=== PATIENT | male | born 1965 | race Caucasian/White ===

== ENCOUNTER 2018-02-21 16:34 | Inpatient (IN) ==
--- NOTE | 2018-02-21 16:56 | Emergency Department Note ---
Disposition Clinical Impression: NSTEMI (non-ST elevated myocardial infarction) Disposition: Admitted As Inpatient Condition: Fair Forms: ED Satisfaction Letter Time of Disposition: 17:50 SOB HPI - General Chief Complaint: ED Shortness of Breath/Dyspnea Stated Complaint: sob/karsten/having to take breaks w/exertion Time Seen by Provider: 02/21/18 16:41 Source: patient Mode of arrival: ambulatory Limitations: no limitations Nursing Notes Reviewed: Yes Vital Signs Reviewed: Yes - History of Present Illness Patient states he thinks he "over exerted myself" approximately 6 days ago. He has been progressively dyspneic with exertion. Mild substernal chest discomfort. Nonproductive cough for the past several months. No peripheral edema. Pt Subjective Complaint: shortness of breath, cough, chest pain Onset (ago): day(s) Severity: moderate Consistency/Duration: intermittent Improves with: nothing Worsens with: exertion Associated symptoms: Reports: other (Feels lightheaded, dizzy, near syncopal) Treatment prior to arrival: none Cough present: No - Related Data Home oxygen amount: none Home Medications Medication Instructions Recorded Confirmed Bp Med 11/22/17 Penicillin G Potassium 11/22/17 Previous Rx's Medication Instructions Recorded Guaifenesin/Dm/Pseudoephedrine 1 each PO BID #20 tablet 11/22/17 [Capmist Dm Tablet] Ondansetron HCl [Zofran] 4 mg PO TID #15 tablet 11/22/17 Oseltamivir [Tamiflu] 75 mg PO BID #10 capsule 11/22/17 PredniSONE [Deltasone] 20 mg PO DAILY #12 tablet 11/22/17 Allergies Allergy/AdvReac Type Severity Reaction Status Date / Time No Known Allergies Allergy Verified 02/21/18 16:37 All systems ED: reviewed and negative except as stated. Constitutional: Reports: weight change Eyes: Reports: as per HPI ENT ED: Reports: as per HPI Cardiovascular: Reports: chest pain, dyspnea on exertion Respiratory: Reports: cough, dyspnea Gastrointestinal: Reports: as per HPI Genitourinary: Reports: as per HPI Musculoskeletal: Reports: as per HPI Integumentary: Reports: as per HPI Neurological: Reports: as per HPI Psychiatric: Reports: as per HPI Endocrine: Reports: as per HPI Hematological/Lymphatic: Reports: as per HPI Allergic/Immunologic: Reports: as per HPI Past Medical History - Past Medical History Source: patient Medical history: Reports: non-contributory, hypertension Psychiatric history: Reports: no psych history - Social History Smoking Status: Never smoker Smokeless Tobacco Status: No Alcohol use: Reports: none Drug use: Reports: none Physical Exam - General Limitations: no limitations General appearance: alert - Head Head exam: atraumatic - Eye Eye exam: Present: normal appearance - ENT ENT exam: normal exam - Neck Neck exam: Present: normal inspection, full ROM - Chest Chest inspection: Present: normal inspection, symmetric chest wall rise - Respiratory Respiratory exam: Present: normal lung sounds bilaterally - Cardiovascular Cardiovascular exam: Present: regular rate, normal rhythm, normal heart sounds - Abdominal Exam Abdominal exam: Present: soft, Non-Tender - Rectal Exam Rectal exam: Present: deferred - Extremities Exam Extremities exam: Present: normal inspection. Absent: pedal edema - Neurological Exam Neurological exam: Present: alert, oriented X3, CN II-XII intact - Psychiatric Psychiatric exam: Present: normal affect, normal mood - Skin Skin exam: Present: warm, dry, intact Course Course Narrative: Patient presents with exertional dyspnea and substernal chest discomfort over the past 5-6 days. Lungs clear. Pulse ox appropriate. ECG obtained and reviewed by me. He does have inverted T waves in the septal leads as well as in his inferior leads. This is dynamically different compared to previous dated 12/30/14. Workup including chest x-ray, labs with attention to troponin and d-dimer initiated - Reevaluation(s) Reevaluation #1: Test results discussed with patient. Heparin drip initiated. Consult placed to cardiology. I will request admission to medicine service Vital Signs Temperature 98.2 F 02/21/18 16:37 Pulse Rate 83 02/21/18 16:37 Respiratory Rate 24 02/21/18 16:37 Blood Pressure 140/101 02/21/18 16:37 O2 Sat by Pulse Oximetry 98 02/21/18 16:37 Temperature 98.2 F 02/21/18 16:59 Pulse Rate 77 02/21/18 17:05 Respiratory Rate 18 02/21/18 17:05 Blood Pressure 154/101 02/21/18 17:05 O2 Sat by Pulse Oximetry 98 02/21/18 17:05 Oxygen Delivery Oxygen Delivery Room Air Shortness of Breath/Dyspnea - Lab Data Lab results reviewed: Yes I reviewed the patient's lab results. Result diagrams: 02/21/18 16:58 02/21/18 16:58 Lab Results 02/21/18 02/21/18 02/21/18 Range/Units 16:58 16:58 16:58 WBC 6.5 (4.3-11.1) K/mcL RBC 4.58 (4.19-5.50) M/mcL Hgb 15.8 (12.9-16.9) g/dL Hct 43.8 (37.5-50.1) % MCV 95.6 (83.0-100.0) fL MCH 34.5 H (28.0-33.3) pg MCHC 36.1 H (31.6-35.5) g/dL RDW 16.0 H (11.5-14.5) % Plt Count 111 L (140-400) K/mcL MPV 14.1 H (9.4-12.4) fL Immature Gran % 0.5 (0-4) % Seg Neutrophils % 57.6 % Lymphocytes % 27.4 % Monocytes % 9.1 % Eosinophils % 4.2 % Basophils % 1.2 % Neutrophils # 3.7 (1.6-8.9) K/mcL Lymphocytes # 1.8 (0.6-4.6) K/mcL Monocytes # 0.6 (0.0-1.3) K/mcL Eosinophils # 0.3 (0.0-0.6) K/mcL Basophils # 0.1 (0.0-0.2) K/mcL D-Dimer (0-500) ng/mLFEU Sodium 141 (136-145) mEq/L Potassium 4.4 (3.5-5.1) mEq/L Chloride 113 H (98-107) mEq/L Carbon Dioxide 21 L (23-29) mEq/L BUN 18 (6-20) mg/dL Creatinine 0.89 (0.70-1.30) mg/dL Est GFR ( Amer) > 60 (> 60) Est GFR (Non-Af Amer) > 60 (> 60) BUN/Creatinine Ratio 20 (6-26) Glucose 107 H (70-105) mg/dL Calculated Osmolality 294 (280-300) Calcium 9.5 (8.6-10.3) mg/dL Total Bilirubin 1.9 H (0.3-1.0) mg/dL Direct Bilirubin 0.5 H (0.0-0.2) mg/dL Indirect Bilirubin 1.4 H (0.0-1.2) mg/dL AST 52 H (13-39) Units/L ALT 27 (7-52) Units/L Alkaline Phosphatase 99 (34-104) Units/L Troponin I 0.07 H* (< 0.04) ng/mL B-Natriuretic Peptide 650 H (Less than 100) pg/mL Serum Total Protein 6.1 L (6.4-8.9) g/dL Albumin 3.7 (3.5-5.7) g/dL Globulin 2.4 (2.4-3.5) g/dL Albumin/Globulin Ratio 1.5 (1.1-2.2) 02/21/18 Range/Units 16:58 WBC (4.3-11.1) K/mcL RBC (4.19-5.50) M/mcL Hgb (12.9-16.9) g/dL Hct (37.5-50.1) % MCV (83.0-100.0) fL MCH (28.0-33.3) pg MCHC (31.6-35.5) g/dL RDW (11.5-14.5) % Plt Count (140-400) K/mcL MPV (9.4-12.4) fL Immature Gran % (0-4) % Seg Neutrophils % % Lymphocytes % % Monocytes % % Eosinophils % % Basophils % % Neutrophils # (1.6-8.9) K/mcL Lymphocytes # (0.6-4.6) K/mcL Monocytes # (0.0-1.3) K/mcL Eosinophils # (0.0-0.6) K/mcL Basophils # (0.0-0.2) K/mcL D-Dimer 261 (0-500) ng/mLFEU Sodium (136-145) mEq/L Potassium (3.5-5.1) mEq/L Chloride (98-107) mEq/L Carbon Dioxide (23-29) mEq/L BUN (6-20) mg/dL Creatinine (0.70-1.30) mg/dL Est GFR ( Amer) (> 60) Est GFR (Non-Af Amer) (> 60) BUN/Creatinine Ratio (6-26) Glucose (70-105) mg/dL Calculated Osmolality (280-300) Calcium (8.6-10.3) mg/dL Total Bilirubin (0.3-1.0) mg/dL Direct Bilirubin (0.0-0.2) mg/dL Indirect Bilirubin (0.0-1.2) mg/dL AST (13-39) Units/L ALT (7-52) Units/L Alkaline Phosphatase (34-104) Units/L Troponin I (< 0.04) ng/mL B-Natriuretic Peptide (Less than 100) pg/mL Serum Total Protein (6.4-8.9) g/dL Albumin (3.5-5.7) g/dL Globulin (2.4-3.5) g/dL Albumin/Globulin Ratio (1.1-2.2) - Radiology Data Radiology results reviewed: Yes I reviewed the patient's radiology results. - EKG Data EKG attestation: Yes I reviewed and interpreted this EKG. EKG results narrative: Normal sinus rhythm rate 80. R1 55 QRS 104 QT/QTc 403/439. Incomplete right bundle branch block. Inverted T waves in leads 3 and V3 and V4. Study dynamically different compared to previous dated 12/30/14 Critical Care Time Critical Care Time: Yes Total Critical Care Time: 30 Attestation: The high probability of a clinically significant, sudden or life threatening deterioration of the [] system(s) required my full and direct attention, intervention and personal management. The aggregate critical care time was [] minutes. This time is in addition to time spent performing reported procedures but includes the following: [] Data Review and interpretation [] Patient assessment and monitoring of vital signs [] Documentation [] Medication orders and management
[2018-02-21 17:08] LABS: Basophils # 0.1 K/mcL (0.0-0.2); Basophils % 1.2 %; Eosinophils # 0.3 K/mcL (0.0-0.6); Eosinophils % 4.2 %; Hematocrit 43.8 % (37.5-50.1); Hemoglobin 15.8 g/dL (12.9-16.9); Immature Granulocytes % 0.5 % (0-4); Lymphocytes # 1.8 K/mcL (0.6-4.6); Lymphocytes % 27.4 %; Mean Corpuscular HGB Conc 36.1 g/dL (31.6-35.5); Mean Corpuscular Hemoglobin 34.5 pg (28.0-33.3); Mean Corpuscular Volume 95.6 fL (83.0-100.0); Mean Platelet Volume 14.1 fL (9.4-12.4); Monocytes # 0.6 K/mcL (0.0-1.3); Monocytes % 9.1 %; Neutrophils # 3.7 K/mcL (1.6-8.9); Platelet Count 111 K/mcL (140-400); Red Blood Count 4.58 M/mcL (4.19-5.50); Segmented Neutrophils % 57.6 %
[2018-02-21 17:37] LABS: Alanine Aminotransferase 27 Units/L (7-52); Albumin 3.7 g/dL (3.5-5.7); Albumin/Globulin Ratio 1.5 (1.1-2.2); Alkaline Phosphatase 99 Units/L (34-104); Aspartate Amino Transferase 52 Units/L (13-39); BUN/Creatinine Ratio 20 (6-26); Bilirubin,Direct 0.5 mg/dL (0.0-0.2); Bilirubin,Indirect 1.4 mg/dL (0.0-1.2); Bilirubin,Total 1.9 mg/dL (0.3-1.0); Blood Urea Nitrogen 18 mg/dL (6-20); Calcium 9.5 mg/dL (8.6-10.3); Carbon Dioxide 21 mEq/L (23-29); Chloride 113 mEq/L (98-107); Globulin 2.4 g/dL (2.4-3.5); Glucose 107 mg/dL (70-105); Osmolality,Calculated 294 (280-300); Potassium 4.4 mEq/L (3.5-5.1); Sodium 141 mEq/L (136-145); Total Protein 6.1 g/dL (6.4-8.9); eGFR For African Americans > 60 (> 60); eGFR For Non-African Americans > 60 (> 60)
[2018-02-21] MEDS ORDERED: *HR* Heparin 5,000 UNIT/ML VIAL IVP ONE (17:41)
[2018-02-21] MEDS ORDERED: *HR* Heparin 5,000 UNIT/ML VIAL IVP PRN ×2 (17:41)
[2018-02-21] MEDS ORDERED: Aspirin 325 MG TABLET PO ONE (17:41)
[2018-02-21 17:42] LABS: Troponin I 0.07 ng/mL (< 0.04)
[2018-02-21 17:49] LABS: INR 1.3; Prothrombin Time 14.6 Seconds (9.4-12.1)
[2018-02-21 17:51] LABS: Activated Partial Thrombo Time 40.4 Seconds (26.0-36.0)
[2018-02-21] MEDS: Heparin 25,000 UNIT/500 ML D5W 25,000 UNIT/500 ML BAG IVC SCH (18:03)
--- NOTE | 2018-02-21 18:35 | Internal Med History&Physical ---
Date of Encounter: 02/21/18 Time of Encounter: 18:27 Internal Medicine - H&P: HPI Chief complaint: Chest pain Admitted From: Emergency Dept Plans for Post Hospital Care: Home History of present illness: Mr. Varela is a 52 year old male with history of hypertension, chronically elevated liver enzymes suspected to be due to previous alcohol use, mild thrombocytopenia also suspected to be secondary to previous alcohol use, who presented to the ED with complaints of dyspnea on exertion and mild substernal chest discomfort that has been going on for a few about a week. He actually says that his dyspnea on exertion has been going on for a couple months or so but has worsened since Saturday. The patient thought he had some heat exhaustion as he was working outside on Saturday. This persisted throughout the week with any minimal exertion. Symptoms are intermittent. Better with rest. He reports associated lightheadedness and diaphoresis. Patient was hemodynamically stable in the ED revealed workup showed negative chest x-ray. EKG with inverted T waves in septal and inferior leads. Troponin came back elevated at 0.07. LFTs were mildly elevated. Because of the elevated troponins cardiology were consulted from the ED and recommended starting a heparin drip for NSTEMI. The patient also received aspirin 325 mg. Denies fever, chills, headache, nausea, vomiting, abdominal pain, diarrhea, constipation, urinary symptoms, or neurological symptoms Past Med Surg Social Fam HX - Past Medical History Medical history: non-contributory, hypertension Psychiatric history: no psych history - Past Surgical History Additional surgical history: mastectomy - Social History Smoking Status: Never smoker Smokeless Tobacco Status: No Alcohol use: none Drug use: none Internal Medicine - H&P: Meds Metoprolol [Lopressor] 25 mg PO QPM 02/21/18 [History] 3 Allergy/AdvReac Type Severity Reaction Status Date / Time No Known Allergies Allergy Verified 02/21/18 16:37 All Systems PM: A 10-system review of systems was performed and is negative for pertinent findings except as documented above in the HPI. Review of systems: All systems reviewed are negative except for as mentioned above - Constitutional Vitals: Temp Pulse Resp BP Pulse Ox 98.2 F 73 18 145/102 95 02/21/18 16:59 02/21/18 18:11 02/21/18 18:11 02/21/18 18:11 02/21/18 18:11 Exam: GEN: NAD HEENT: AT, NC, No cyanosis, oral mucosa is moist, No JVD Lymphatics: No lymphadenoapthy Eyes: Extrocular muscles intact, anicteric CVS:RRR. S1, S2, No m/r/g RESP: CTAB ABD: Soft, NT, ND, +BS EXT: No edema, No rashes, 2+ DP NEURO: Nonfocal, CN II-XII intact, No focal motor or sensory deficits Psych: Cooperative, Not anxious or depressed Internal Med - H&P Results - Labs CBC & Chem 7: 02/21/18 16:58 02/21/18 16:58 Labs: Short CBC 02/21/18 Range/Units 16:58 WBC 6.5 (4.3-11.1) K/mcL Hgb 15.8 (12.9-16.9) g/dL Hct 43.8 (37.5-50.1) % Plt Count 111 L (140-400) K/mcL Neutrophils # 3.7 (1.6-8.9) K/mcL BMP 02/21/18 16:58 Sodium 141 Potassium 4.4 Chloride 113 H Carbon Dioxide 21 L BUN 18 Creatinine 0.89 Glucose 107 H Calcium 9.5 Cardiac Enzymes 02/21/18 Range/Units 16:58 Troponin I 0.07 H* (< 0.04) ng/mL Liver Function 02/21/18 Range/Units 16:58 Total Bilirubin 1.9 H (0.3-1.0) mg/dL Direct Bilirubin 0.5 H (0.0-0.2) mg/dL AST 52 H (13-39) Units/L ALT 27 (7-52) Units/L Alkaline Phosphatase 99 (34-104) Units/L Albumin 3.7 (3.5-5.7) g/dL - Impressions ITS Impressions Chest X-Ray 02/21/18 16:48 IMPRESSION: Stable negative chest. D/ / Caitlin Juarez MD / Caitlin Juarez MD Interpreting Provider: Caitlin Juarez MD - Assessment and plan (1) NSTEMI (non-ST elevated myocardial infarction) Current Visit: Yes Status: Acute Assessment and plan: Admit to telemetry. Consult cardiology. Continue heparin drip. Trend cardiac enzymes. Nothing by mouth after midnight. Check A1c and lipid panel. Start him on baby aspirin. (2) HTN (hypertension) Current Visit: Yes Status: Acute Assessment and plan: Resume home antihypertensives Qualifiers: Hypertension type: essential hypertension Qualified Code(s): I10 - Essential (primary) hypertension (3) Elevated liver enzymes Current Visit: Yes Status: Acute Assessment and plan: Chronic. Suspected to be due to previous alcohol abuse. (4) Thrombocytopenia Current Visit: Yes Status: Acute Assessment and plan: Chronic. (5) DVT prophylaxis Current Visit: Yes Status: Acute Assessment and plan: On heparin drip. - Time Spent With Patient Total time spent is greater than 50% in coordination of care (as documented) at patient's floor/unit and/or counseling patient:
[2018-02-21] MEDS ORDERED: Naloxone 0.4 MG/ML INJ IVP PRN (18:39)
[2018-02-21] MEDS ORDERED: Acetaminophen 325 MG TABLET PO PRN (18:39)
[2018-02-21] MEDS ORDERED: Nitroglycerin 0.4 MG TAB.SUBL SL PRN (18:40)
[2018-02-22 00:45] LABS: Immature Granulocytes % 0.5 % (0-4)
[2018-02-22 00:47] LABS: Basophils # 0.1 K/mcL (0.0-0.2); Eosinophils # 0.3 K/mcL (0.0-0.6); Eosinophils % 4.6 %; Hemoglobin 14.3 g/dL (12.9-16.9); Immature Platelets 13.4 % (1.1-6.1); Lymphocytes # 2.1 K/mcL (0.6-4.6); Lymphocytes % 34.5 %; Mean Corpuscular HGB Conc 35.8 g/dL (31.6-35.5); Mean Corpuscular Hemoglobin 34.5 pg (28.0-33.3); Mean Corpuscular Volume 96.6 fL (83.0-100.0); Monocytes # 0.5 K/mcL (0.0-1.3); Monocytes % 8.8 %; Red Blood Count 4.14 M/mcL (4.19-5.50); Red Cell Distribution Width 15.6 % (11.5-14.5); Segmented Neutrophils % 50.6 %
[2018-02-22 01:06] LABS: Alanine Aminotransferase 24 Units/L (7-52); Albumin 3.3 g/dL (3.5-5.7); Albumin/Globulin Ratio 1.4 (1.1-2.2); Alkaline Phosphatase 77 Units/L (34-104); Aspartate Amino Transferase 46 Units/L (13-39); BUN/Creatinine Ratio 18 (6-26); Bilirubin,Total 1.8 mg/dL (0.3-1.0); Blood Urea Nitrogen 17 mg/dL (6-20); Calcium 8.9 mg/dL (8.6-10.3); Carbon Dioxide 24 mEq/L (23-29); Chloride 111 mEq/L (98-107); Cholesterol 95 mg/dL (< 200); Globulin 2.3 g/dL (2.4-3.5); Glucose 120 mg/dL (70-105); HDL Cholesterol 32 mg/dL (40-59); LDL Cholesterol,Calculated 56 mg/dL (0-99); Magnesium 1.9 mg/dL (1.6-2.6); Osmolality,Calculated 293 (280-300); Potassium 4.2 mEq/L (3.5-5.1); Sodium 140 mEq/L (136-145); Total Protein 5.6 g/dL (6.4-8.9); Triglycerides 34 mg/dL (< 150); eGFR For African Americans > 60 (> 60); eGFR For Non-African Americans > 60 (> 60)
[2018-02-22 01:18] LABS: Platelet Count 79 K/mcL (140-400); Platelet Estimate Decreased (Normal)
[2018-02-22] MEDS: Aspirin Enteric Coated 81 MG Tablet PO SCH (09:24)
--- NOTE | 2018-02-22 10:26 | Cardiology Consult Note ---
Addendum entered and electronically signed by Omar Klein CNP 02/22/18 10:39 : Will hold off starting statin with known liver disease. Original Note: <Omar Klein - Last Filed: 02/22/18 10:20> Date of Encounter: 02/22/18 Time of Encounter: 10:20 Assessment and Plan (1) NSTEMI (non-ST elevated myocardial infarction) Current Visit: Yes Status: Acute Troponin elevated at 0.06, 0.07, 0.07. Concern for NSTEMI with symptoms. EKG shows NSR with new non specific T wave changes compared to old EKG. Cardiac risk factors include HTN and ETOH use. Continue heparin gtt as tolerated. Asa, statin, and bb. TTE ordered. Further recommendations to follow. (2) HTN (hypertension) Current Visit: Yes Status: Acute B/p elevated 140/100 on admit. B/p improved. Qualifiers: Hypertension type: essential hypertension Qualified Code(s): I10 - Essential (primary) hypertension (3) Thrombocytopenia Current Visit: Yes Status: Acute Known thrombocytopenia related to ETOH use. Patient may not tolerate DAPT. Continue to monitor. Discussion w patient/family: The assessment and plan as outlined above was discussed with the patient and/or family members who expressed understanding and agreement. All questions were answered. Thank you for involving us in the care of your patient. Please call with any questions. History of Present Illness Consult date: 02/22/18 Requesting physician: Maxime Brown Consult reason: elevated troponin Chief complaint: dyspnea on exertion, dizziness, chest discomfort History of present illness: Mr. Varela is a 52 year old male with past medical history of HTN, ETOH abuse, liver cirrhosis, and thrombocytopenia who presents with the c/o increasing KILGORE, dizziness, and left sided chest pain. C/o KILGORE over the past 6 months that has increased. Reports 40 lb weight gain due to sedentary lifestyle. C/o left intermittent left sided chest aching over the past week. Yesterday he noticed he developed dizziness wit his symptoms. He is found to have elevated troponin up to 0.07. Cardiology consulted for NSTEMI. He denies prior history of CAD. He underwent stress test over 10 years ago. Past Med Surg Social Fam HX - Past Medical History Medical history: non-contributory, cirrhosis, hypertension Psychiatric history: no psych history - Past Surgical History Surgical History: no surgical history Additional surgical history: mastectomy - Social History Smoking Status: Never smoker Smokeless Tobacco Status: No Alcohol use: none, unknown (Heavy ETOH use in the past) Drug use: none Medications and Allergies Metoprolol [Lopressor] 25 mg PO QPM 02/21/18 [History] 3 Allergy/AdvReac Type Severity Reaction Status Date / Time No Known Allergies Allergy Verified 02/21/18 16:37 All Systems Review: The remainder of the systems were reviewed and are negative Physical Examination Vital Signs, Last 4 Hours Temp Pulse Resp BP Pulse Ox 02/22/18 07:21 97.5 F L 67 18 133/96 96 General: Conversant, No Apparent Distress HEENT: Atraumatic, Normocephaly, Mucus Membranes Moist Neck: No JVD, Normal carotid pulses Cardiac: Reg Rate and Rhythm, Normal S1 and S2, No Murmur Lungs: Normal Breath Sounds, No Wheeze, Rales, Rhonchi Neuro: Alert and responsive, No focal deficits noted Abdomen: Soft, Non-Tender Skin: No rashes noted on visualized skin Musculoskeletal: No Chest Wall Tenderness Extremities: No Clubbing, No Cyanosis, No Edema, Normal Pulses Results 02/22/18 00:24 02/22/18 00:24 Lab Results 02/22/18 02/22/18 02/22/18 00:24 00:24 00:24 WBC 6.0 Hgb 14.3 D Hct 40.0 Plt Count 79 L APTT Sodium 140 Potassium 4.2 Chloride 111 H Carbon Dioxide 24 BUN 17 Creatinine 0.95 Glucose 120 H Calcium 8.9 Magnesium 1.9 Total Bilirubin 1.8 H AST 46 H ALT 24 Alkaline Phosphatase 77 Troponin I 0.07 H* TSH 1.870 02/22/18 02/22/18 02/22/18 00:24 06:10 06:10 WBC Hgb Hct Plt Count APTT 102.6 H D 74.3 H Sodium Potassium Chloride Carbon Dioxide BUN Creatinine Glucose Calcium Magnesium Total Bilirubin AST ALT Alkaline Phosphatase Troponin I 0.06 H* TSH - Imaging and Cardiology Echo: pending Consult Discharge Plan - Plan Referrals: NONE,PCP [Primary Care Provider] - <Canelo Alex - Last Filed: 02/22/18 11:08> Date of Encounter: 02/22/18 - Attending Attestation I have personally performed a face to face evaluation on this patient. I have reviewed and agree with the care plan. History and Exam by me shows: Presents with KILGORE worsening over past few days. Mildly positive trop. Would treat medically and check echo. May need heart cath. Will need to monitor platelets. Assessment and Plan Discussion w patient/family: The assessment and plan as outlined above was discussed with the patient and/or family members who expressed understanding and agreement. All questions were answered. Thank you for involving us in the care of your patient. Please call with any questions. History of Present Illness History of present illness: Mr. Varela is a 52 year old male All Systems Review: The remainder of the systems were reviewed and are negative Physical Examination Vital Signs, Last 4 Hours Temp Pulse Resp BP Pulse Ox 02/22/18 07:21 97.5 F L 67 18 133/96 96 Results 02/22/18 00:24 02/22/18 00:24 Lab Results 02/22/18 02/22/18 02/22/18 00:24 00:24 00:24 WBC 6.0 Hgb 14.3 D Hct 40.0 Plt Count 79 L APTT Sodium 140 Potassium 4.2 Chloride 111 H Carbon Dioxide 24 BUN 17 Creatinine 0.95 Glucose 120 H Calcium 8.9 Magnesium 1.9 Total Bilirubin 1.8 H AST 46 H ALT 24 Alkaline Phosphatase 77 Troponin I 0.07 H* TSH 1.870 02/22/18 02/22/18 02/22/18 00:24 06:10 06:10 WBC Hgb Hct Plt Count APTT 102.6 H D 74.3 H Sodium Potassium Chloride Carbon Dioxide BUN Creatinine Glucose Calcium Magnesium Total Bilirubin AST ALT Alkaline Phosphatase Troponin I 0.06 H* TSH
--- NOTE | 2018-02-22 12:06 | Internal Med Progress Note ---
<Lexa Shah - Last Filed: 02/22/18 13:49> Date of Encounter: 02/22/18 Time of Encounter: 09:45 - Assessment and plan (1) NSTEMI (non-ST elevated myocardial infarction) Current Visit: Yes Status: Acute Assessment and plan: On telemetry, cardiology consulted Possible s3 gallop on exam .07, .07, .06 troponin; ecg shows nsr with t wave abnormalities in septal/ inferior leads Plan: Continuing heparin gtt Echo ordered (2) Thrombocytopenia Current Visit: Yes Status: Acute Assessment and plan: 111, 79, 80; is chronically low per history alcohol abuse Is on heparin drip, typically should not affect platelet count, there is a small dip however, monitoring for symptoms of HIT, asymptomatic currently (3) HTN (hypertension) Current Visit: Yes Status: Acute Assessment and plan: On home antihypertensives Qualifiers: Hypertension type: essential hypertension Qualified Code(s): I10 - Essential (primary) hypertension (4) Elevated liver enzymes Current Visit: Yes Status: Acute Assessment and plan: Chronic. Suspected to be due to previous alcohol abuse. (5) DVT prophylaxis Current Visit: Yes Status: Acute Assessment and plan: On heparin drip. - Time Spent With Patient Total time spent is greater than 50% in coordination of care (as documented) at patient's floor/unit and/or counseling patient: - Subjective Interval history: Patient describes his symptoms as increased work of breathing and lightheadedness after a few minutes of walking that worsening since a week ago, no fevers, no chest/jaw/arm/back pain. Has not tried to exert himself since admission last night, at rest is comfortable. Has had a stress test and echo 12 years ago, at the time did not show ischemic changes. - Constitutional Vitals: Temp Pulse Resp BP Pulse Ox 97.6 F 74 17 125/89 95 02/22/18 11:23 02/22/18 11:23 02/22/18 11:23 02/22/18 11:23 02/22/18 11:23 - Head Head exam: Present: atraumatic, normocephalic - Eye Eye exam: Present: PERRL, conjuntiva pink, sclera anicteric Pupils: Present: PERRL - Neck Neck exam general surgery: Present: supple, trachea midline. Absent: lymphadenopathy - Respiratory Respiratory exam: Present: CTAB. Absent: accessory muscle use, rales, rhonchi, wheezes - Cardiovascular Cardiovascular exam: Present: RRR, +S1, +S2, +S3 (possible S3 gallop). Absent: diastolic murmur, gallop, rubs, systolic murmur - GI/Abdominal GI/Abdominal exam: Present: normal bowel sounds, soft, no peritoneal signs. Absent: distended, tenderness - Extremities Exam Extremities exam: Present: warm, radial pulses palpable and symmetrical. Absent : calf tenderness, cyanotic, pedal edema - Neurological Exam Neurological exam: Present: CN II-XII intact, oriented X3, no focal deficits. Absent: pronater drift, facial droop, speech deficit - Skin Skin exam: Present: dry, intact Internal Medicine: Result - Labs CBC & Chem 7: 02/22/18 12:20 02/22/18 00:24 Labs: Short CBC 02/22/18 Range/Units 00:24 WBC 6.0 (4.3-11.1) K/mcL Hgb 14.3 D (12.9-16.9) g/dL Hct 40.0 (37.5-50.1) % Plt Count 79 L (140-400) K/mcL Neutrophils # 3.0 (1.6-8.9) K/mcL BMP 02/22/18 00:24 Sodium 140 Potassium 4.2 Chloride 111 H Carbon Dioxide 24 BUN 17 Creatinine 0.95 Glucose 120 H Calcium 8.9 Cardiac Enzymes 02/22/18 02/22/18 Range/Units 00:24 06:10 Troponin I 0.07 H* 0.06 H* (< 0.04) ng/mL Liver Function 02/22/18 Range/Units 00:24 Total Bilirubin 1.8 H (0.3-1.0) mg/dL AST 46 H (13-39) Units/L ALT 24 (7-52) Units/L Alkaline Phosphatase 77 (34-104) Units/L Albumin 3.3 L (3.5-5.7) g/dL - ABG Interpretation ABG results: PT/INR, D-dimer PT 14.6 Seconds (9.4-12.1) H 02/21/18 16:58 D-Dimer 261 ng/mLFEU (0-500) 02/21/18 16:58 Consult Discharge Plan - Plan Referrals: NONE,PCP [Primary Care Provider] - <Ryan Stoner - Last Filed: 02/22/18 14:55> Date of Encounter: 02/22/18 - Assessment and plan (1) NSTEMI (non-ST elevated myocardial infarction) Current Visit: Yes Status: Acute (2) HTN (hypertension) Current Visit: Yes Status: Acute Qualifiers: Hypertension type: essential hypertension Qualified Code(s): I10 - Essential (primary) hypertension (3) Elevated liver enzymes Current Visit: Yes Status: Acute (4) Thrombocytopenia Current Visit: Yes Status: Acute (5) DVT prophylaxis Current Visit: Yes Status: Acute - Time Spent With Patient Total time spent is greater than 50% in coordination of care (as documented) at patient's floor/unit and/or counseling patient: - Constitutional Vitals: Temp Pulse Resp BP Pulse Ox 97.6 F 74 17 125/89 95 02/22/18 11:23 02/22/18 11:23 02/22/18 11:23 02/22/18 11:23 02/22/18 11:23 Internal Medicine: Result - Labs CBC & Chem 7: 02/22/18 12:20 02/22/18 00:24 Labs: Short CBC 02/22/18 02/22/18 Range/Units 00:24 12:20 WBC 6.0 (4.3-11.1) K/mcL Hgb 14.3 D (12.9-16.9) g/dL Hct 40.0 (37.5-50.1) % Plt Count 79 L 80 L (140-400) K/mcL Neutrophils # 3.0 (1.6-8.9) K/mcL BMP 02/22/18 00:24 Sodium 140 Potassium 4.2 Chloride 111 H Carbon Dioxide 24 BUN 17 Creatinine 0.95 Glucose 120 H Calcium 8.9 Cardiac Enzymes 02/22/18 02/22/18 Range/Units 00:24 06:10 Troponin I 0.07 H* 0.06 H* (< 0.04) ng/mL Liver Function 02/22/18 Range/Units 00:24 Total Bilirubin 1.8 H (0.3-1.0) mg/dL AST 46 H (13-39) Units/L ALT 24 (7-52) Units/L Alkaline Phosphatase 77 (34-104) Units/L Albumin 3.3 L (3.5-5.7) g/dL - ABG Interpretation ABG results: PT/INR, D-dimer PT 14.6 Seconds (9.4-12.1) H 02/21/18 16:58 D-Dimer 261 ng/mLFEU (0-500) 02/21/18 16:58 - Attending Attestation I performed an independent interview and examine of this pt. I agree with the findings, assessment, and plan of Dr. Shah, internal medicine resident. Cardiology input is also noted and appreciated. Cannot exclude a non-STEMI. Pt remains on a heparin drip, beta princess, aspirin 81 mg by mouth daily. Patient is currently without any pain or discomfort. No shortness of breath presently. A d-dimer was ordered which came back negative. An echocardiogram is pending, looking for wall motion abnormalities. All else as outlined above. Pt currently with O2 sats of 95% on room air. Gen: NAD, AAOx3 Skin Warm and dry Lungs dimin bs bases Ht RRR Abd Soft +BS, NT Ext no edema
[2018-02-22] MEDS: Heparin 25,000 UNIT/500 ML D5W 25,000 UNIT/500 ML BAG IVC SCH (18:17)
[2018-02-22] MEDS: Ondansetron ODT 4 MG TAB.RAPDIS SL PRN (23:10)
[2018-02-23 04:40] LABS: Hematocrit 41.9 % (37.5-50.1); Hemoglobin 15.1 g/dL (12.9-16.9); Mean Corpuscular Hemoglobin 34.7 pg (28.0-33.3); Mean Corpuscular Volume 96.3 fL (83.0-100.0); Red Blood Count 4.35 M/mcL (4.19-5.50); Red Cell Distribution Width 15.8 % (11.5-14.5)
[2018-02-23 04:42] LABS: Platelet Count 95 K/mcL (140-400)
[2018-02-23 05:01] LABS: BUN/Creatinine Ratio 16 (6-26); Blood Urea Nitrogen 12 mg/dL (6-20); Calcium 8.9 mg/dL (8.6-10.3); Carbon Dioxide 24 mEq/L (23-29); Chloride 113 mEq/L (98-107); Glucose 92 mg/dL (70-105); Osmolality,Calculated 289 (280-300); Potassium 4.4 mEq/L (3.5-5.1); Sodium 140 mEq/L (136-145); eGFR For African Americans > 60 (> 60); eGFR For Non-African Americans > 60 (> 60)
[2018-02-23 08:09] LABS: Estimated Average Glucose 65 mg/dl; Hemoglobin A1C 3.9 %
[2018-02-23] MEDS: Aspirin Enteric Coated 81 MG Tablet PO SCH (08:43)
[2018-02-23] MEDS: Ondansetron ODT 4 MG TAB.RAPDIS SL PRN ×2 (08:47→20:36)
--- NOTE | 2018-02-23 12:57 | Cardiology Progress Note ---
Date of Encounter: 02/23/18 Time of Encounter: 12:55 Assessment and Plan (1) NSTEMI (non-ST elevated myocardial infarction) Current Visit: Yes Status: Acute Troponin elevated at 0.06, 0.07, 0.07. Concern for NSTEMI with symptoms. EKG shows NSR with new non specific T wave changes compared to old EKG. TTE shows preserved LV function. Severe PAH noted. Cardiac risk factors include HTN and ETOH use. Continue heparin gtt as tolerated. Asa, statin, and bb. Plan for LHC in the am. PLT are stable. (2) HTN (hypertension) Current Visit: Yes Status: Acute B/p elevated 140/100 on admit. B/p improved. Qualifiers: Hypertension type: essential hypertension Qualified Code(s): I10 - Essential (primary) hypertension (3) Thrombocytopenia Current Visit: Yes Status: Acute Known thrombocytopenia related to ETOH use. PLT stable. Continue to monitor. (4) Pulmonary hypertension Current Visit: Yes Status: Acute Noted to have severe pulmonary hypertension. Denies h/o lung disease or sleep apnea. Recommend pulmonology referral. Discussion w patient/family: The assessment and plan as outlined above was discussed with the patient and/or family members who expressed understanding and agreement. All questions were answered. Thank you for involving us in the care of your patient. Please call with any questions. Subjective Principal diagnosis: NSTEMI Interval history: C/o [place] with minimal activity through the night. Objective Vital Signs, Last 4 Hours Temp Pulse Resp BP Pulse Ox 02/23/18 11:51 97.7 F 68 16 110/80 96 General: Conversant, No Apparent Distress, Other (Noted to have difficulty finding words) HEENT: Atraumatic, Normocephaly, Mucus Membranes Moist Neck: No JVD, Normal carotid pulses Cardiac: Reg Rate and Rhythm, Normal S1 and S2, No Murmur Lungs: Normal Breath Sounds, No Wheeze, Rales, Rhonchi Neuro: Alert and responsive, No focal deficits noted Abdomen: Soft, Non-Tender Skin: No rashes noted on visualized skin Musculoskeletal: No Chest Wall Tenderness Extremities: No Clubbing, No Cyanosis, No Edema, Normal Pulses Results 02/23/18 04:30 02/23/18 04:30 Lab Results 07/01/18 07/01/18 07/01/18 04:30 04:30 11:57 WBC 6.3 Hgb 15.1 Hct 41.9 Plt Count 95 L APTT 62.9 H Sodium 140 Potassium 4.4 Chloride 113 H Carbon Dioxide 24 BUN 12 Creatinine 0.76 Glucose 92 Calcium 8.9 - Imaging and Cardiology Echo: report reviewed - EKG Interpretation EKG results cardiology: personally reviewed Consult Discharge Plan - Plan Referrals: NONE,PCP [Primary Care Provider] -
--- NOTE | 2018-02-23 16:26 | Internal Med Progress Note ---
<Lexa Shah - Last Filed: 02/23/18 16:30> Date of Encounter: 02/23/18 Time of Encounter: 11:00 - Assessment and plan (1) NSTEMI (non-ST elevated myocardial infarction) Current Visit: Yes Status: Acute Assessment and plan: On telemetry, cardiology consulted S3 on exam .07, .07, .06 troponin; ecg shows nsr with t wave abnormalities in septal/ inferior leads Plan: Continuing heparin gtt Echo shows PAH, preserved EF, plan for LHC AM, stable platelets (2) Thrombocytopenia Current Visit: Yes Status: Acute Assessment and plan: 111, 79, 80, 95; is chronically low per history alcohol abuse stable (3) HTN (hypertension) Current Visit: Yes Status: Acute Assessment and plan: On home antihypertensives Qualifiers: Hypertension type: essential hypertension Qualified Code(s): I10 - Essential (primary) hypertension (4) Elevated liver enzymes Current Visit: Yes Status: Acute Assessment and plan: Chronic. Suspected to be due to previous alcohol abuse. (5) DVT prophylaxis Current Visit: Yes Status: Acute Assessment and plan: On heparin drip. - Time Spent With Patient Total time spent is greater than 50% in coordination of care (as documented) at patient's floor/unit and/or counseling patient: - Subjective Interval history: Pt reports mild shortness of breath last night, no changes to telemetry or desaturation recorded, echo performed yesterday, shows severe PAH, LHC tomorrow AM - Constitutional Vitals: Temp Pulse Resp BP Pulse Ox 97.6 F 65 17 122/76 96 02/23/18 16:12 02/23/18 16:12 02/23/18 16:12 02/23/18 16:12 02/23/18 16:12 - Head Head exam: Present: atraumatic, normocephalic - Eye Eye exam: Present: PERRL, conjuntiva pink, sclera anicteric Pupils: Present: PERRL - Neck Neck exam general surgery: Present: supple, trachea midline. Absent: lymphadenopathy - Respiratory Respiratory exam: Present: CTAB. Absent: accessory muscle use, rales, rhonchi, wheezes - Cardiovascular Cardiovascular exam: Present: RRR, +S1, +S2, +S3. Absent: diastolic murmur, gallop, JVD, rubs, systolic murmur - GI/Abdominal GI/Abdominal exam: Present: normal bowel sounds, soft, no peritoneal signs. Absent: distended, tenderness - Extremities Exam Extremities exam: Present: warm, radial pulses palpable and symmetrical. Absent : calf tenderness, cyanotic, pedal edema - Neurological Exam Neurological exam: Present: CN II-XII intact, oriented X3, no focal deficits. Absent: pronater drift, facial droop, speech deficit - Skin Skin exam: Present: dry, intact Internal Medicine: Result - Labs CBC & Chem 7: 02/23/18 04:30 02/23/18 04:30 Labs: Short CBC 02/23/18 Range/Units 04:30 WBC 6.3 (4.3-11.1) K/mcL Hgb 15.1 (12.9-16.9) g/dL Hct 41.9 (37.5-50.1) % Plt Count 95 L (140-400) K/mcL BMP 02/23/18 04:30 Sodium 140 Potassium 4.4 Chloride 113 H Carbon Dioxide 24 BUN 12 Creatinine 0.76 Glucose 92 Calcium 8.9 - ABG Interpretation ABG results: PT/INR, D-dimer PT 14.6 Seconds (9.4-12.1) H 02/21/18 16:58 D-Dimer 261 ng/mLFEU (0-500) 02/21/18 16:58 - Impressions Impressions Echocardiogram 02/22/18 10:16 Impressions: LVEF 60-65%. Normal LV chamber size and function. Mild concentric left ventricular hypertrophy. Mild left ventricular diastolic dysfunction. Mild to moderately dilated right ventricle with normal function. Mild tricuspid regurgitation. Severe pulmonary hypertension. Estimated RVSP is 80 mmHg. Findings: Study Quality * Technically adequate exam. ECG Findings * Normal sinus rhythm. Left Ventricle * LVEF 60-65%. * Normal LV chamber size and function. * Mild concentric left ventricular hypertrophy. * Mild left ventricular diastolic dysfunction. Right Ventricle * Mild to moderately dilated right ventricle with normal function. Left Atrium * Mildly dilated left atrium. Right Atrium * Moderately dilated right atrium. Aortic Valve * Trileaflet aortic valve. * Mildly sclerotic aortic valve leaflets. * Mild aortic sclerosis. Mean gradient 9 mmHg. * No aortic regurgitation. Mitral Valve * Mild mitral annular calcification. * No mitral regurgitation. * No mitral stenosis. Tricuspid Valve * Normal tricuspid valve structure. * Mild tricuspid regurgitation. * Severe pulmonary hypertension. * Estimated RVSP is 80 mmHg. * Estimated RA pressure is 5 mmHg. Pulmonic Valve * Normal pulmonic valve structure and function. * No pulmonic regurgitation. Aorta * Normally sized aortic root. Pericardium * The pericardium appears normal. IVC * Normal IVC dimensions and inspiratory collapse. Pulmonary Artery * Normal visualized portions of the main pulmonary artery. Consult Discharge Plan - Plan Referrals: NONE,PCP [Primary Care Provider] - <Ryan Stoner - Last Filed: 02/23/18 17:39> Date of Encounter: 02/23/18 - Assessment and plan (1) NSTEMI (non-ST elevated myocardial infarction) Current Visit: Yes Status: Acute (2) HTN (hypertension) Current Visit: Yes Status: Acute Qualifiers: Hypertension type: essential hypertension Qualified Code(s): I10 - Essential (primary) hypertension (3) Elevated liver enzymes Current Visit: Yes Status: Acute (4) Thrombocytopenia Current Visit: Yes Status: Acute (5) DVT prophylaxis Current Visit: Yes Status: Acute - Time Spent With Patient Total time spent is greater than 50% in coordination of care (as documented) at patient's floor/unit and/or counseling patient: - Constitutional Vitals: Temp Pulse Resp BP Pulse Ox 97.6 F 65 17 122/76 96 02/23/18 16:12 02/23/18 16:12 02/23/18 16:12 02/23/18 16:12 02/23/18 16:12 Internal Medicine: Result - Labs CBC & Chem 7: 02/23/18 04:30 02/23/18 04:30 Labs: Short CBC 02/23/18 Range/Units 04:30 WBC 6.3 (4.3-11.1) K/mcL Hgb 15.1 (12.9-16.9) g/dL Hct 41.9 (37.5-50.1) % Plt Count 95 L (140-400) K/mcL BMP 02/23/18 04:30 Sodium 140 Potassium 4.4 Chloride 113 H Carbon Dioxide 24 BUN 12 Creatinine 0.76 Glucose 92 Calcium 8.9 - ABG Interpretation ABG results: PT/INR, D-dimer PT 14.6 Seconds (9.4-12.1) H 02/21/18 16:58 D-Dimer 261 ng/mLFEU (0-500) 02/21/18 16:58 - Impressions Impressions Echocardiogram 02/22/18 10:16 Impressions: LVEF 60-65%. Normal LV chamber size and function. Mild concentric left ventricular hypertrophy. Mild left ventricular diastolic dysfunction. Mild to moderately dilated right ventricle with normal function. Mild tricuspid regurgitation. Severe pulmonary hypertension. Estimated RVSP is 80 mmHg. Findings: Study Quality * Technically adequate exam. ECG Findings * Normal sinus rhythm. Left Ventricle * LVEF 60-65%. * Normal LV chamber size and function. * Mild concentric left ventricular hypertrophy. * Mild left ventricular diastolic dysfunction. Right Ventricle * Mild to moderately dilated right ventricle with normal function. Left Atrium * Mildly dilated left atrium. Right Atrium * Moderately dilated right atrium. Aortic Valve * Trileaflet aortic valve. * Mildly sclerotic aortic valve leaflets. * Mild aortic sclerosis. Mean gradient 9 mmHg. * No aortic regurgitation. Mitral Valve * Mild mitral annular calcification. * No mitral regurgitation. * No mitral stenosis. Tricuspid Valve * Normal tricuspid valve structure. * Mild tricuspid regurgitation. * Severe pulmonary hypertension. * Estimated RVSP is 80 mmHg. * Estimated RA pressure is 5 mmHg. Pulmonic Valve * Normal pulmonic valve structure and function. * No pulmonic regurgitation. Aorta * Normally sized aortic root. Pericardium * The pericardium appears normal. IVC * Normal IVC dimensions and inspiratory collapse. Pulmonary Artery * Normal visualized portions of the main pulmonary artery. - Attending Attestation I performed an independent interview and examine this patient. I am in agreement with the findings, assessment, and plan of Dr. Shah, internal medicine resident. Cardiology input is noted and appreciated. Patient currently has no complaints. States he sometimes gets short of breath when he exerts himself. Cardiology is planning left heart catheterization tomorrow. Of note patient's echocardiogram shows a normal ejection fraction, LVH with mild left ventricular diastolic dysfunction. Also surprisingly showed severe pulmonary hypertension, with RSVP of 80 mmHg. Was mild tricuspid regurgitation which could cause for a falsely underestimated pulmonary pressure. This raises differential diagnosis to include primary pulmonary hypertension, although the acuity of his symptoms argues against this. Patient will likely need evaluation for pulmonary thromboembolic disease with a CT angiography thorax, but I will not do this urgently given the fact that he will have a dye load from a heart catheterization tomorrow and he is also on a heparin drip presently. Would also likely recommend consideration for future right heart catheterization as well to better characterize. Another consideration would be pulmonary hypertension due to undiagnosed sleep apnea for which I would recommend an outpatient sleep study. A further consideration would be the fact that patient has reported using diet pills I did ask him if he recognized the name Fen/Phen, but is not sure. Pulmonary hypertension is a known complication of these medications. Even years later.. May be related to Liver disease, Connective tissue disease. As pt is only 52 years of age, would continue with aggressive workup. Gen NAD Neck supple Lung CTAB, dimin bs bases Ht RRR Abd Soft +BS, NT Ext no edema
[2018-02-24] MEDS: Heparin 25,000 UNIT/500 ML D5W 25,000 UNIT/500 ML BAG IVC SCH (02:41)
[2018-02-24] MEDS: Ondansetron ODT 4 MG TAB.RAPDIS SL PRN (07:04)
--- NOTE | 2018-02-24 08:32 | Internal Med Progress Note ---
<Abdon Palmer - Last Filed: 02/24/18 13:10> Date of Encounter: 02/24/18 Time of Encounter: 08:30 - Assessment and plan (1) NSTEMI (non-ST elevated myocardial infarction) Current Visit: Yes Status: Acute Assessment and plan: On telemetry, cardiology consulted S3 on exam .07, .07, .06 troponin; ecg shows nsr with t wave abnormalities in septal/ inferior leads Plan: Continuing heparin gtt Echo shows PAH, preserved EF LHC today per cardiology (2) HTN (hypertension) Current Visit: Yes Status: Acute Assessment and plan: On home antihypertensives Qualifiers: Hypertension type: essential hypertension Qualified Code(s): I10 - Essential (primary) hypertension (3) Elevated liver enzymes Current Visit: Yes Status: Acute Assessment and plan: Chronic. Suspected to be due to previous alcohol abuse. (4) Thrombocytopenia Current Visit: Yes Status: Acute Assessment and plan: 111, 79, 80, 95; is chronically low per history alcohol abuse stable, improving (5) DVT prophylaxis Current Visit: Yes Status: Acute Assessment and plan: On heparin drip. (6) Pulmonary hypertension Current Visit: Yes Status: Acute Assessment and plan: Severe pulmonary htn, RVSP 80 Cardiology plans for LHC and RHC today Requires workup for other causes such as thromboembolic disease Will treat with antihypertensives. Consider additional meds Likely Pulm consult outpatient - Time Spent With Patient Total time spent is greater than 50% in coordination of care (as documented) at patient's floor/unit and/or counseling patient: - Subjective Interval history: The patient is resting comfortably in bed at time of examination. He states that his symptoms continue to persist, but he expands saying that he has had a dry cough for approximately 3 months and was concerned that he may have walking pneumonia. He also admitted some clamminess which has been going on for several days. Per cardiology, the patient is scheduled for left heart catheter today, however given his severe pulmonary hypertension they have agreed to do a right heart catheter as well. - Constitutional Vitals: Temp Pulse Resp BP Pulse Ox 97.6 F 63 16 125/86 97 02/24/18 06:56 02/24/18 06:56 02/24/18 06:56 02/24/18 06:56 02/24/18 06:56 Internal Medicine: Result - Labs CBC & Chem 7: 02/23/18 04:30 02/23/18 04:30 - ABG Interpretation ABG results: PT/INR, D-dimer PT 14.6 Seconds (9.4-12.1) H 02/21/18 16:58 D-Dimer 261 ng/mLFEU (0-500) 02/21/18 16:58 - Impressions Impressions Echocardiogram 02/22/18 10:16 Impressions: LVEF 60-65%. Normal LV chamber size and function. Mild concentric left ventricular hypertrophy. Mild left ventricular diastolic dysfunction. Mild to moderately dilated right ventricle with normal function. Mild tricuspid regurgitation. Severe pulmonary hypertension. Estimated RVSP is 80 mmHg. Findings: Study Quality * Technically adequate exam. ECG Findings * Normal sinus rhythm. Left Ventricle * LVEF 60-65%. * Normal LV chamber size and function. * Mild concentric left ventricular hypertrophy. * Mild left ventricular diastolic dysfunction. Right Ventricle * Mild to moderately dilated right ventricle with normal function. Left Atrium * Mildly dilated left atrium. Right Atrium * Moderately dilated right atrium. Aortic Valve * Trileaflet aortic valve. * Mildly sclerotic aortic valve leaflets. * Mild aortic sclerosis. Mean gradient 9 mmHg. * No aortic regurgitation. Mitral Valve * Mild mitral annular calcification. * No mitral regurgitation. * No mitral stenosis. Tricuspid Valve * Normal tricuspid valve structure. * Mild tricuspid regurgitation. * Severe pulmonary hypertension. * Estimated RVSP is 80 mmHg. * Estimated RA pressure is 5 mmHg. Pulmonic Valve * Normal pulmonic valve structure and function. * No pulmonic regurgitation. Aorta * Normally sized aortic root. Pericardium * The pericardium appears normal. IVC * Normal IVC dimensions and inspiratory collapse. Pulmonary Artery * Normal visualized portions of the main pulmonary artery. Consult Discharge Plan - Plan Referrals: NONE,PCP [Primary Care Provider] - <Ryan Stoner - Last Filed: 02/24/18 15:11> Date of Encounter: 02/24/18 - Assessment and plan (1) NSTEMI (non-ST elevated myocardial infarction) Current Visit: Yes Status: Acute (2) HTN (hypertension) Current Visit: Yes Status: Acute Qualifiers: Hypertension type: essential hypertension Qualified Code(s): I10 - Essential (primary) hypertension (3) Elevated liver enzymes Current Visit: Yes Status: Acute (4) Thrombocytopenia Current Visit: Yes Status: Acute (5) DVT prophylaxis Current Visit: Yes Status: Acute (6) Pulmonary hypertension Current Visit: Yes Status: Acute - Time Spent With Patient Total time spent is greater than 50% in coordination of care (as documented) at patient's floor/unit and/or counseling patient: - Constitutional Vitals: Temp Pulse Resp BP Pulse Ox 98.1 F 66 16 121/94 98 02/24/18 11:51 02/24/18 11:51 02/24/18 11:51 02/24/18 11:51 02/24/18 11:51 Internal Medicine: Result - Labs CBC & Chem 7: 02/23/18 04:30 02/23/18 04:30 - ABG Interpretation ABG results: PT/INR, D-dimer PT 14.6 Seconds (9.4-12.1) H 02/21/18 16:58 D-Dimer 261 ng/mLFEU (0-500) 02/21/18 16:58 - Attending Attestation I performed an independent interview and examine of this patient. I am in agreement with the findings, assessment, and plan of Dr. Palmer, internal medicine resident. Patient will have both a right heart catheterization to assess his pulmonary hypertension, as well as a left heart catheterization for non-STEMI. Patient currently is comfortable. Still has intermittent shortness of breath, particularly with exertion. Patient's pulmonary hypertension is of yet of unclear etiology. He does have liver disease which could contribute. As mentioned in my previous note, patient will need evaluation for sleep apnea, also he does have a history of using diet pills the name he cannot recall, although some have been associated with pulmonary hypertension. This could also be a primary pulmonary hypertension. He will need a workup for pulmonary emboli as well, with a CT of his chest, but would not do acutely in the setting of receiving dye from a heart catheterization (nephrotoxicity). He is already on anticoagulation which would be the acute treatment if this were to be a pulmonary embolism. Can consider CT Throrax tomorrow if renal fxn remains stable. An additional consideration would be an occult connective tissue disorder, or chronic lung disease. Gen NAD, AAOx3 Skin warm and dry Lung dimin bs bases Ht rrr abd soft +BS, NT Ext no edema
[2018-02-24] MEDS: Aspirin Enteric Coated 81 MG Tablet PO SCH (10:05)
[2018-02-24] MEDS ORDERED: *HR* Heparin 10,000 UNIT/10 ML VIAL ONE (12:08)
[2018-02-24] MEDS ORDERED: Heparin 1,000 UNITS/500 mL 500 ML ONE ×2 (12:08→15:15)
[2018-02-24] MEDS ORDERED: Verapamil 5 MG/2 ML VIAL ONE (12:08)
[2018-02-24] MEDS ORDERED: 0.9 % Sodium Chloride 1,000 ML ONE ×2 (12:08→14:14)
[2018-02-24] MEDS ORDERED: ISOVUE-370 200 ML INFUS..BTL IV ONE (12:09)
[2018-02-24] MEDS ORDERED: Nitroglycerin 1,000 MCG/10 ML VIAL IV ONE (12:09)
[2018-02-24] MEDS ORDERED: *HR* Midazolam HCl 5 MG/5 ML VIAL IVP ONE (14:31)
[2018-02-24] MEDS ORDERED: *HR* FentaNYL (PF) 100 MCG/2 ML VIAL ONE (14:31)
--- NOTE | 2018-02-24 14:35 | Pre-Sedation Evaluation ---
Pre-sedation evaluation - Pre-sedation checklist Date of procedure: 02/24/18 Procedure: [facility] Recent Vitals: Last Vital Signs Temp 98.1 F 02/24/18 11:51 Pulse 66 02/24/18 11:51 Resp 16 02/24/18 11:51 BP 121/94 02/24/18 11:51 Pulse Ox 98 02/24/18 11:51 H&P (including ROS) documented in medical record: Yes Previous reaction to sedatives/anesthetics: No Dietary Status: NPO after Midnight Airway Assessment: Patient can open mouth completely, TMJ function normal ASA Classification *see protocol: CLASS II-Mild systemic disease Plan of Care: Pt appropriate candidate for procedure/moderate/conscious sedation , Risks/benefits of procedure/sedation discussed w/ patient/family Cardiac Registry (Cardio Only) - Functional Capacity Functional Capacity: >=4 METS with symptoms - Clincal Frailty Scale Clinical Frailty Scale: Managing Well
--- NOTE | 2018-02-24 15:47 | Event Note ---
Date of Encounter: 02/24/18 Time of Encounter: 15:42 - Cardiology Event Note Mr. Varela underwent L/RHC today. Discussed with Dr. Peralta. No intervention needed. There was mid LAD bridging and 40% stenosis seen. LVEDP was normal. Wedge pressure was 60. Primary team notified. Recommend work-up with pulmonology and CTA to r/o chronic PE. Will need to wait 24 hours prior to CTA due to LHC. Heparin gtt will be continued. No further testing recommended from cardiology standpoint. Out-pt f/u will be scheduled. Call with questions.
--- NOTE | 2018-02-24 15:54 | Invasive Diagnostic Lab Proc ---
Name: Tea Varela Date of Study: 02/24/2018 Date: 1965 Ht: 68.9in Medical Record#: [id number] Age: 52 Wt: 249.12lb Gender: Male BSA: 2.27 Order #: [id number] BMI: 36.9 Physicians Procedure Physician: Mario Peralta MD, [facility] Referring MD: Referring MD: Staff Name Position Time In Nubia Nunez RT Monitor 02:28 PM Sonny Ford RT (R) Scrub 02:29 PM Julissa Carrizales RN Graduate Recruiter 02:29 PM Dania Walter RN Graduate Recruiter 02:29 PM Indications Indication Non-Stemi Procedures Performed Procedure R&L HRT ART/VENTRICLE ANGIO Pre-Procedure Checklist Informed consent is complete signed and on chart. H&P is on chart. ID band is on and ID verified with patient. Patient NPO for procedure The procedure was described for the patient and questions were answered. Blood Pressure: 133/81 ECG is on chart. Rhythm: NSR Plan of Care Patient will tolerate the procedure without complications. Adequate level of comfort will be maintained. Hemodynamics will remain stable Patient will recover from procedure without complications. Respiratory function will be maintained. Cardiac rhythm will remain stable. Patient temperature will be maintained. Patient and/or family have verbalized understanding of the procedure. Patient Education Chief Complaint/Reason for Test: Cardiac Cath Developmental Category: Adult (18-64 years) Developmentally Appropriate for Age: Yes Learning Barriers: None Education Needs: Procedure Education Method: Verbal Information Taught: Cardiac Cath Educational Evaluation: Able to repeat information Intravenous Access Time IV Size Location DC'd Fluid/Drip Rate Units RN 18g 1 1/4" Patent On Arrival Rt Antecubital 0.9NaCl ml/hr 02:19 PM Started with 20g 1 1/4" Lt Antecubital 0.9NaCl 25 ml/hr Allergies No Known Allergies NONE KNOWN Vital Signs Time BP (mmHg) HR (bpm) O2 Sat. RR (bpm) LOC 01:11 PM 125 / 86 63 % 16 5 = Fully awake and oriented or at pre-proc level 02:30 PM / % 5 = Fully awake and oriented or at pre-proc level 02:30 PM / % 4 = Oriented but drowsy 02:45 PM / % 4 = Oriented but drowsy 03:00 PM / % 4 = Oriented but drowsy 03:15 PM / % 4 = Oriented but drowsy 02:33 PM 145 / 53 72 99 % 02:40 PM 133 / 81 73 88 % 02:46 PM 122 / 96 75 91 % 02:51 PM 167 / 69 73 93 % 02:55 PM 137 / 91 71 93 % 03:00 PM 143 / 99 74 96 % 03:05 PM 150 / 98 73 96 % 03:10 PM 143 / 92 71 92 % 03:15 PM 135 / 89 76 93 % 03:20 PM 142 / 87 72 92 % 03:25 PM 138 / 77 72 93 % 03:30 PM 142 / 99 71 93 % Procedural Medications Time Medication Dose Units Method Given By 02:30 PM Oxygen 2 L/min nasal cannula Dania Walter RN 02:34 PM Versed 2 mg Intravenous Dania Walter RN 02:34 PM Fentanyl 50 mcg Intravenous Dania Walter RN 02:43 PM Lidocaine 2% 0.5 ml Subcutaneous Mario Peralta MD, FACC 02:57 PM Lidocaine 2% 0.5 ml Subcutaneous Mario Peralta MD, FACC 03:06 PM Heparin 2000 units Nitroglycerin 200 mcg Verapamil 2.5 mg Intraarterial Mario Peralta MD, FACC 03:06 PM Versed 2 mg Intravenous Dania Walter RN 03:06 PM Fentanyl 25 mcg Intravenous Dania Walter RN ASA Classification: CLASS II- Mild systemic disease (i.e. well-controlled diabetes, hypertension, asthma, cigarette smoking) Tiffanie Score Preprocedure Postprocedure Activity 2- Moves 4 extremities sustained head lift Activity 2- Moves 4 extremities sustained head lift Circulation 2- SBP +/= 20 points of pre-anesthetic level Circulation 2- SBP +/= 20 points of pre-anesthetic level Consciousness 2- Awake and alert oriented x 3 Consciousness 2- Awake and alert oriented x 3 O2 Saturation 2- Able to maintain O2 satruation of 92% on room air O2 Saturation 2- Able to maintain O2 satruation of 92% on room air Respiratory 2- Able to deep breathe and cough well Respiratory 2- Able to deep breathe and cough well Total Score 10 Total Score 10 Contrast Agent: Isovue Diagnostic Contrast: 45 ml Total Contrast: 45 ml Fluoro Dose: 5255 mGy Procedure Log Time Note Enter By 02:28 PM Pt arrived to photographic laboratory technician 2 at 14:28 angela 02:29 PM Nubia Nunez RT Position: Monitor Time in: : 02: PM Sonny Ford RT (R) Position: Scrub Time in: : PM Julissa Carrizales RN Position: Graduate Recruiter Time in: kkner 02: PM Dania Walter RN Position: Graduate Recruiter Time in: : [email or web address] 02: PM Patient charges- Angio tray pack, Navilyst 3mm J, Pulse Oximetry and ACIST tubing and transducer kkner : PM IV Supplies used: J loop Angio Cath. kk 02: PM Case Delayed No kk: PM Hair removed from procedure site in holding area using clippers. Right wrist prepped with Chloraprep by Julissa Carrizales RN, then patient was draped. Skin intact. kk: PM Physician arrived 14: kkallner : PM ASA Class CLASS II- Mild systemic disease (i.e. well-controlled diabetes, hypertension, asthma, cigarette smoking) kkallner 02:30 PM Meet and greet completed kk 02:30 PM Sign in performed according to hospital policy. kk 02:30 PM Procedure start 14:30 kkner 02:30 PM Time: 14:30 Oxygen on at 2 L/min per nasal cannula by Dania Walter RN 02:30 PM Time: 14:30 Patient comfortable and pain free: Yes kkner :30 PM Time: 14:30LOC: 5 = Fully awake and oriented or at pre-proc level kkallner 02:30 PM Clinical Presentation: Non-STEMI kkallner 02:31 PM CathStat 02:31 PM Vitals capture started with the following parameters, Patient=Adult, Interval=5 min, Initial Vbillqwm=985 mmHg, Deflation Rate=5 mmHg, Cuff placed on Right Arm 02:33 PM HR=72 bpm, EEPZ=901/53 mmhg, SpO2=99 % 02:34 PM Time: 14:34 Versed 2 mg Intravenous Given by Dania Walter RN ner 02:34 PM Time: 14:34 Fentanyl 50 mcg Intravenous Given by Dania Walter RN alliveth 02:37 PM Pressure channel 1 zeroed. 02:39 PM Vitals capture stopped. 02:40 PM Vitals capture started with the following parameters, Patient=Adult, Interval=5 min, Initial Vffdeycx=367 mmHg, Deflation Rate=5 mmHg, Cuff placed on Right Arm 02:40 PM HR=73 bpm, JEYK=012/81 mmhg, SpO2=88.0 % 02:43 PM Time: 14:43 .5 ml Lidocaine 2% to right brachial Subcutaneous Given by Mario Peralta MD, [facility] kkallner 02:44 PM Access obtained by percutaneous puncture. 6Fr 11cm Terumo Glidesheath sheath placed in right Brachial vein. [id number] kkallner 02:45 PM 5 F [employer] Rosebud-Kenyatta 'S' tip inserted through venous sheath kkallner 02:45 PM Time: 14:30LOC: 4 = Oriented but drowsy kkallner 02:46 PM HR=75 bpm, ENIS=315/96 mmhg, SpO2=91.0 % 02:47 PM Pressure channel 1 zeroed. 02:48 PM Pressure channel 1 zero failed. 02:48 PM Pressure channel 1 zeroed. 02:49 PM CathStat 02:49 PM CathStat 02:50 PM [ Start Thermo CO sample ] 02:50 PM Recorded Pressure: PCW, HR=76, Condition=Condition 1 (Pulmonary Capillary Wedge) PCW 53/51/48 02:50 PM Recorded Pressure: MPA, HR=74, Condition=Condition 1 (Main Pulmonary Artery) MPA 81/57/69 02:51 PM HR=73 bpm, GIJY=339/69 mmhg, SpO2=93.0 % 02:52 PM Thermo CO: CO=4.9 l/m, HR=69 bpm, Condition=Condition 1. Used in calculation. Equipment: Description and Size=Rosebud 5 fr, Type=Bath Probe, CC=0.621 Injectant: Temp=19.0 - 22.0 Celsius, Volume=10.0 ml 02:52 PM Thermo CO: CO=2.4 l/m, HR=70 bpm, Condition=Condition 1. Not used in calculation. Equipment: Description and Size=Rosebud 5 fr, Type=Bath Probe, CC=0.621 Injectant: Temp=19.0 - 22.0 Celsius, Volume=10.0 ml 02:53 PM Thermo CO: CO=7.9 l/m, HR=71 bpm, Condition=Condition 1. Not used in calculation. Equipment: Description and Size=Rosebud 5 fr, Type=Bath Probe, CC=0.621 Injectant: Temp=19.0 - 22.0 Celsius, Volume=10.0 ml 02:54 PM Thermo CO: CO=5.5 l/m, HR=71 bpm, Condition=Condition 1. Used in calculation. Equipment: Description and Size=Rosebud 5 fr, Type=Bath Probe, CC=0.621 Injectant: Temp=19.0 - 22.0 Celsius, Volume=10.0 ml 02:55 PM Time: 14:30 Patient comfortable and pain free: Yes kkallner 02:55 PM Thermo CO: CO=4.1 l/m, HR=71 bpm, Condition=Condition 1. Used in calculation. Equipment: Description and Size=Rosebud 5 fr, Type=Bath Probe, CC=0.621 Injectant: Temp=19.0 - 22.0 Celsius, Volume=10.0 ml 02:55 PM HR=71 bpm, OUAT=654/91 mmhg, SpO2=93 % 02:58 PM Time: 14:57 .5 ml Lidocaine 2% to right radial Subcutaneous Given by Mario Peralta MD, FACC kkallner 02:58 PM Saturation: Site=PA (Pulmonary Artery) , O2=70.1 %, Condition=Condition 1. Used in calculation. 02:59 PM Pressure channel 1 zeroed. 03:00 PM HR=74 bpm, UITF=711/99 mmhg, SpO2=96.0 % 03:00 PM Time: 14:45LOC: 4 = Oriented but drowsy kkallner 03:00 PM ultrasound used for access [email or web address] 03:04 PM Access obtained by percutaneous puncture. 6Fr 10cm Terumo Glidesheath sheath placed in right Radial artery. [id number] kkallner 03:05 PM Physician flushed swan kkallner 03:05 PM HR=73 bpm, SGBA=919/98 mmhg, SpO2=96.0 % 03:06 PM Time: 15:06 Patient given 2000 units Heparin, 200 mcg Nitroglycerin, and 2.5 mg Verapamil Intraarterial by aMrio Peralta MD, FACC. This is given to reduce risk of vessel spasm and thrombosis. [email or web address] 03:06 PM 5Fr TIG catheter inserted over the wire [facility] kkner 03:06 PM wire removed kkallner 03:06 PM Time: 15:06 Versed 2 mg Intravenous Given by Dania Walter RN kkallner 03:06 PM Time: 15:06 Fentanyl 25 mcg Intravenous Given by Dania Walter RN kkallner 03:08 PM Recorded Pressure: Ao, HR=75, Condition=Condition 1 (Aorta) Ao 120/95/107 03:09 PM Physician flushed swan kkallner 03:09 PM RCA angiography performed in multiple views. [email or web address] 03:09 PM TIG repositioned into LCA kkallner 03:09 PM Recorded Pressure: Ao, HR=72, Condition=Condition 1 (Aorta) Ao 118/98/108 03:10 PM LCA angiography performed in multiple views. [email or web address] 03:10 PM Time: 14:55 Patient comfortable and pain free: Yes kkallner 03:10 PM HR=71 bpm, HTHP=323/92 mmhg, SpO2=92.0 % 03:12 PM Lesion found in Mid LAD. Pre Stenosis: 50 Pre WERNER Flow: kkallner 03:12 PM Catheter removed kkner 03:13 PM 5Fr Pigtail catheter inserted over the wire [facility] kkner 03:13 PM wire removed kk 03:13 PM Catheter selectively placed in left ventricle kkallner 03:13 PM Pressure channel 1 zeroed. 03:13 PM Recorded Pressure: LV, HR=83, Condition=Condition 1 (Left Ventricle) LV 105/5/13 03:14 PM Physician flushed swan kkallner 03:15 PM HR=76 bpm, TFVD=596/89 mmhg, SpO2=93.0 % 03:15 PM Time: 15:00LOC: 4 = Oriented but drowsy kkallner 03:16 PM Recorded Pressure: LV, HR=79, Condition=Condition 1 (Left Ventricle) LV 125/0/10 03:17 PM Saturation: Site=LV (Left Ventricle) , O2=95.2 %, Condition=Condition 1. Used in calculation. 03:20 PM HR=72 bpm, JJYN=823/87 mmhg, SpO2=92.0 % 03:21 PM Pressure channel 2 zeroed. 03:22 PM Bolus angiogram of left Ventricle complete: 12 ml/sec for a total of 20 mls kkallner 03:22 PM Recorded Pressure: LV, Ao, HR=73, Condition=Condition 1 (Left Ventricle) LV 127/1/9, (Aorta) Ao 97/43/63 03:22 PM Recorded Pressure: LV, PCW, HR=74, Condition=Condition 1 (Left Ventricle) LV 125/3/12, (Pulmonary Capillary Wedge) PCW 69/70/65 03:23 PM Recorded Pressure: LV, MPA, HR=73, Condition=Condition 1 (Left Ventricle) LV 127/3/12, (Main Pulmonary Artery) MPA 101/49/69 03:23 PM Recorded Pressure: LV, RV, HR=74, Condition=Condition 1 (Left Ventricle) LV 124/3/12, (Right Ventricle) RV 101/9/14 03:24 PM Recorded Pressure: LV, MPA, HR=76, Condition=Condition 1 (Left Ventricle) LV 119/-1/9, (Main Pulmonary Artery) MPA 97/9/44 03:24 PM Recorded Pressure: LV, MPA, HR=68, Condition=Condition 1 (Left Ventricle) LV 111/7/15, (Main Pulmonary Artery) MPA 113/13/49 03:24 PM Recorded Pressure: LV, RA, HR=75, Condition=Condition 1 (Left Ventricle) LV 121/0/9, (Right Atrium) RA 21/17/15 03:25 PM Time: 15:10 Patient comfortable and pain free: Yes kkallner 03:25 PM HR=72 bpm, NDMB=960/77 mmhg, SpO2=93.0 % 03:27 PM Recorded Pressure: LV, Ao, RA, HR=71, Condition=Condition 1 (Left Ventricle) LV 125/1/12, (Aorta) Ao 104/76/88, (Right Atrium) RA -/-3/-3 03:28 PM Venous sheath pulled using manual compression and V+ Pad for 15 minutes by Adina Duran RT (R) kkallner 03:28 PM Rosebud-Kenyatta catheter removed with balloon intact kkallner 03:28 PM pigtail removed kkallner 03:28 PM Right heart hemodynamics, O2 saturations and Cardiac Outputs obtained. kkallner 03:29 PM Procedure completed at 15:29 02/24/2018 kkallner 03:30 PM Did you address WERNER flow and Dominance? Yes kkallner 03:30 PM Sign out completed: Radiation Dose 496.55 mGy, 5255.31 cGy/cm2 Fluoro Time: 5.9 Isovue 370 - 200ml contrast 45 ml given by Mario Peralta MD, [facility]. Complications: NoneCardiac Rehab Consult needed: YesConfirmed administered medications: Yes kkallner 03:30 PM Isovue 370 - 200ml,1 Bottle(s) used. kkallner 03:30 PM 12 ml air in Vasc Band. kkallner 03:30 PM Estimated Blood Loss: minimal kkallner 03:30 PM HR=71 bpm, JCWG=678/99 mmhg, SpO2=93.0 % 03:30 PM Post ECG NSR kkallner 03:30 PM Post Blood Pressure 142/99 kkallner 03:30 PM Time: 15:15LOC: 4 = Oriented but drowsy kkallner 03:31 PM 15:30 Post Pulses Rt Radial 1+ kkallner 03:31 PM Information taught Cardiac Cath and Vasc Band and right heart cath kkallner 03:31 PM Education needs Procedure, Plan of Care, and Responsibilities of Patient in Care kkallner 03:31 PM Learning barriers :None kkallner 03:31 PM Education Methods Verbal kkallner 03:31 PM Education evaluation Able to repeat information kkallner 03:32 PM Site status No bleeding/hematoma - Rt radial/brachial as reported by Sonny Ford RT (R) at 15:32 kkallner 03:32 PM Plavix, Effient or Brilinta given No kkallner 03:32 PM Delay to floor No kkallner 03:33 PM Patient out of room: 15:32 kkallner 03:33 PM no family at this time kkallner 03:33 PM Complications: None kkallner 03:33 PM Fluoro Time: 5.9 kkallner 03:33 PM Isovue 370 - 200ml contrast 45 ml given by Mario Peralta. kkallner 03:33 PM Radiation Dose 496.55 mGy kkallner 03:35 PM Coronary Dominance: right kkallner 03:35 PM Left Main Coronary Artery with 0% stenosis kkallner 03:35 PM Proximal Left Anterior Descending Coronary Artery with 0% stenosis. If graft is supplying this territory, 0 % stenosis. kkallner 03:35 PM Mid/Distal Left Anterior Descending Coronary Artery and diagonal branches with 50% stenosis. If graft is supplying this area, 0 % stenosis kkallner 03:35 PM Circumflex, Obtuse Marginal, Left Posterior Descending, and Left Posterolateral Coronary Arteries with 0 % stenosis. If graft is supplying this area, 0 % stenosis kkallner 03:35 PM Right Coronary, Right Posterior Descending Arteries with Right Posterolateral and Acute Marginal branches with 0 % stenosis. If graft is supplying this area, 0 % stenosis kkallner 03:35 PM Ramus with 0% stenosis. If graft is supplying this area, 0 % stenosis kkallner 03:35 PM Saturation: Site=RA (Right Atrium) , O2=67.6 %, Condition=Condition 1. Used in calculation. 03:35 PM Vitals capture stopped. 03:45 PM Report given to 2NE RN RN Pt taken to [facility] Room #34. 15:45 kkbanner Complications Complication None None Hemodynamics Pressures Site Systolic/A Wave Diastolic/V Wave Mean LV 125 0 10 LV 127 1 9 AO 97 43 63 LV 125 3 12 PCW 69 70 65 LV 127 3 12 MPA 101 49 69 LV 124 3 12 RV 101 9 14 LV 119 -1 9 MPA 97 9 44 LV 111 7 15 MPA 113 13 49 LV 121 0 9 RA 21 17 15 PCW 53 51 48 MPA 81 57 69 AO 120 95 107 AO 118 98 108 LV 105 5 13 LV 125 1 12 AO 104 76 88 RA -3 -3 Oximetry Site Saturation PA 70.1 PA 70.1 AO 0 LV 95.2 LV 95.2 RA 67.6 RA 67.6 Post Procedure Information Blood Pressure: 142/99 mmHg Rhythm: NSR Post procedural instructions were given Site Checks Time Location Status Staff Sheath In? Note 03:32 PM Rt Groin No bleeding/hematoma Sonny Ford RT (R) Pulses Time Site Pre-Procedure Post-Procedure Note Bilateral DP & PT 2+ Bilateral radial 2+ 3:30:00 PM Rt Radial 1+ Updated by Nubia Nunez RT (R) on 02/24/2018 3:45:46 PM electronically signed on 02/24/2018 3:46:33 PM with status of Final
--- NOTE | 2018-02-24 17:44 | Electrocardiograph Report ---
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
[2018-02-25 00:42] LABS: Basophils % 0.6 %; Eosinophils # 0.2 K/mcL (0.0-0.6); Eosinophils % 3.6 %; Hematocrit 40.9 % (37.5-50.1); Hemoglobin 14.5 g/dL (12.9-16.9); Immature Granulocytes % 0.3 % (0-4); Lymphocytes # 2.2 K/mcL (0.6-4.6); Lymphocytes % 33.1 %; Mean Corpuscular HGB Conc 35.5 g/dL (31.6-35.5); Mean Corpuscular Hemoglobin 33.6 pg (28.0-33.3); Mean Corpuscular Volume 94.9 fL (83.0-100.0); Mean Platelet Volume 13.7 fL (9.4-12.4); Monocytes # 0.7 K/mcL (0.0-1.3); Monocytes % 9.8 %; Neutrophils # 3.5 K/mcL (1.6-8.9); Platelet Count 109 K/mcL (140-400); Red Blood Count 4.31 M/mcL (4.19-5.50); Segmented Neutrophils % 52.6 %
[2018-02-25 00:57] LABS: BUN/Creatinine Ratio 15 (6-26); Blood Urea Nitrogen 12 mg/dL (6-20); Carbon Dioxide 19 mEq/L (23-29); Chloride 112 mEq/L (98-107); Glucose 73 mg/dL (70-105); Osmolality,Calculated 284 (280-300); Potassium 4.1 mEq/L (3.5-5.1); Sodium 138 mEq/L (136-145); eGFR For African Americans > 60 (> 60); eGFR For Non-African Americans > 60 (> 60)
--- NOTE | 2018-02-25 06:38 | Pulmonology Consult Note ---
Date of Encounter: 02/25/18 Time of Encounter: 06:37 Assessment and Plan (1) Pulmonary hypertension Current Visit: Yes Status: Acute Impression: In Conclusion, this is a pleasant 52-year-old gentleman with a past medical history of EtOH induced liver cirrhosis with alcoholism now in remission. He presented with symptoms of the both acute and chronic dyspnea found to have elevated right ventricular pressures with evidence of pulmonary hypertension. Overall picture here is concerning for group 1 pulmonary arterial hypertension his risk factors include include chronic cirrhosis which could induce portal pulmonary hypertension. Also there has been a link with pulmonary hypertension and use of Phentermine. His right heart catheterization pressures are difficult to interpret as listed with PCWP of 60 and it is possible that actual of readings were more reflection of his pulmonary pressure and not a true wedge given normal LVEDP on LHC. Nevertheless given the presentation and risk factors along with clear evidence elevated of right-sided pressure and absence findings suggestive of heart disease the diagnosis of WHO group 1 Pulmonary Hypertension is likely. Recs: It is imperative patient discontinue any use of Adipex Patient will need supplemental oxygen to keep saturation greater than 88% at all times. To this end he will need to walking pulse oximetry prior to discharge to establish need for supplemental oxygen Check HIV and perform connective-tissue disease workup including ELLEN/RF/aCCP titers Recommend obtaining VQ scan while inpatient to rule out possibility of chronic thromboembolic disease On outpatient basis he will need high-resolution CT scan and polysomnogram complete set of pulmonary function test Plan for follow-up in pulmonary clinic on an urgent basis at the time of discharge to complete testing and patient will need likely urgent referral to [facility] for further evaluation. Thank you for this consultation we will continue to follow My impression and recommendations were communicated directly with the primary medicine attending Dr. Elizabeth (2) Liver cirrhosis Current Visit: Yes Status: Acute Qualifiers: Hepatic cirrhosis type: alcoholic cirrhosis Qualified Code(s): K70.30 - Alcoholic cirrhosis of liver without ascites History of Present Illness Consult date: 02/25/18 Requesting physician: Abdon Palmer Reason for consult: pulmonary hypertension Chief complaint: Difficulty in Breathing History of present illness: This is a very pleasant 52-year-old gentleman who presented to the emergency room on 02/21 for increased shortness of breath. He states that he had been outs doing manual labor in the yard including weed eating when he notes that he became increasingly short of breath felt like he could not get any air in and became lightheaded and diaphoretic. In the ED he was noted to have a mild elevation in troponin elevated BNP but normal chest x-ray. Echocardiogram was performed for part of workup of possible non-STEMI which shows showed mild diastolic dysfunction but a severely dilated right ventricle and evidence of severe pulmonary hypertension. Furthermore he underwent both left and right heart catheterization left heart catheterization showed mild coronary artery disease but elevated pulmonary artery pressures and purportedly a pulmonary capillary wedge pressure of "60". Pulmonary was consulted to further comment on possibility of underlying pulmonary hypertension. The patient is a known cirrhotic who was diagnosed with EtOH-induced cirrhosis in 2006 at that time he had what appears to be decompensated cirrhosis with ascites and evidence of esophageal varices. He took the initiative and stopped drinking and has been alcohol free since that time. He has a cutch cleaner at [facility] who follows with him regularly and states that for the most part from evidence of MRI of the liver and surveillance endoscopy for varices as well as lab work that there is been no evidence of further decompensation from a standpoint of his cirrhosis. Effect he had been on the liver transplant at one point but had been delisted because of overall improvement in his function. He does suffer from chronic thrombocytopenia as well which is related to this process. The patient states that he is a lifelong nonsmoker and denies use of any illicit drugs. He has not had any industrial or environmental exposures in the past either. 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 No recent travel or exposure to exotic pets. He does snore at night but wakes up generally feeling refreshed and denies daytime sleepiness following asleep while driving or frequent napping. He has taken diet pills on several occasions to help lose weight and says that sometimes he will go to [place] get prescriptions for Adipex (Phentermine). He denies any risk factors for HIV. He states that he was in relatively good health up actually 6 months ago when he was able to exercise on a daily basis and walk 2-4 miles without stopping. He became much more sedentary at the beginning of the year when he enrolled in a nursing program online and that took up most of his time in his significantly decreased any aerobic exercise. In fact 2 months ago when he walked in the hospital to see a relative who was admitted he states that the trip from the parking lot across the hospital was almost impossible for him. With walking even short distances his noted low oxygen level and severe dyspnea. Past Med Surg Social Fam HX - Past Medical History Medical history: non-contributory, cirrhosis, hypertension Psychiatric history: no psych history - Past Surgical History Surgical History: no surgical history Additional surgical history: mastectomy - Social History Smoking Status: Never smoker Smokeless Tobacco Status: No Alcohol use: none, unknown (Heavy ETOH use in the past) Drug use: none Medications and Allergies Metoprolol [Lopressor] 25 mg PO QPM 02/21/18 [History] 3 Allergy/AdvReac Type Severity Reaction Status Date / Time No Known Allergies Allergy Verified 02/21/18 16:37 All Systems: The remainder of the systems were reviewed and are negative Physical Examination Vital Signs: Vital Signs, Last 4 Hours Temp Pulse Resp BP Pulse Ox 02/25/18 05:11 97.5 F L 61 16 106/73 93 General appearance: no acute distress Eyes: nonicteric ENT: oropharynx moist Mallampati (class): 4 Neck: supple, no JVD Effort: normal Auscultation: bilateral: clear Cardiovascular: regular rate and rhythm Gastrointestinal: normoactive bowel sounds, soft, non-tender Integumentary: normal Extremities: no cyanosis, pink and warm, no ischemia or petechiae, edema (Trace bilateral symmetric lower extremity edema) Musculoskeletal: no deformities normal mental status, non-focal exam mood appropriate Results - Laboratory Findings CBC and BMP: 02/25/18 00:24 02/25/18 00:24 PT/INR, D-dimer PT 14.6 Seconds (9.4-12.1) H 02/21/18 16:58 D-Dimer 261 ng/mLFEU (0-500) 02/21/18 16:58 Abnormal lab findings: Abnormal lab results MCH 33.6 pg (28.0-33.3) H 02/25/18 00:24 RDW 16.0 % (11.5-14.5) H 02/25/18 00:24 Plt Count 109 K/mcL (140-400) L 02/25/18 00:24 MPV 13.7 fL (9.4-12.4) H 02/25/18 00:24 Platelet Estimate Decreased (Normal) L 02/22/18 00:24 Immature Plt Fraction 13.4 % (1.1-6.1) H 02/22/18 00:24 PT 14.6 Seconds (9.4-12.1) H 02/21/18 16:58 APTT 52.5 Seconds (26.0-36.0) H 02/25/18 06:02 Chloride 112 mEq/L (98-107) H 02/25/18 00:24 Carbon Dioxide 19 mEq/L (23-29) L 02/25/18 00:24 Total Bilirubin 1.8 mg/dL (0.3-1.0) H 02/22/18 00:24 Direct Bilirubin 0.5 mg/dL (0.0-0.2) H 02/21/18 16:58 Indirect Bilirubin 1.4 mg/dL (0.0-1.2) H 02/21/18 16:58 AST 46 Units/L (13-39) H 02/22/18 00:24 Lactate Dehydrogenase 333 Units/L (140-271) H 02/24/18 04:11 Troponin I 0.06 ng/mL (< 0.04) H* 02/22/18 06:10 B-Natriuretic Peptide 650 pg/mL (Less than 100) H 02/21/18 16:58 Serum Total Protein 5.6 g/dL (6.4-8.9) L 02/22/18 00:24 Albumin 3.3 g/dL (3.5-5.7) L 02/22/18 00:24 Globulin 2.3 g/dL (2.4-3.5) L 02/22/18 00:24 HDL Cholesterol 32 mg/dL (40-59) L 02/22/18 00:24 - Diagnostic Findings Chest x-ray: report reviewed, image reviewed Additional studies: ECHO PAC measurements [facility] report - Clinical Findings Intake & Output: Intake & Output 02/24/18 02/24/18 02/25/18 15:59 23:59 07:59 Intake Total 0 / 0 360 / 360 301 / 301 Output Total 275 / 275 400 / 400 Balance -275 / -275 -40 / -40 301 / 301 Weight 114.6 kg Consult Discharge Plan - Plan Referrals: NONE,PCP [Primary Care Provider] -
[2018-02-25] MEDS: Aspirin Enteric Coated 81 MG Tablet PO SCH (08:09)
--- NOTE | 2018-02-25 08:14 | Internal Med Progress Note ---
Date of Encounter: 02/25/18 - Assessment and plan (1) NSTEMI (non-ST elevated myocardial infarction) Current Visit: Yes Status: Acute (2) HTN (hypertension) Current Visit: Yes Status: Acute Qualifiers: Hypertension type: essential hypertension Qualified Code(s): I10 - Essential (primary) hypertension (3) Elevated liver enzymes Current Visit: Yes Status: Acute (4) Thrombocytopenia Current Visit: Yes Status: Acute (5) DVT prophylaxis Current Visit: Yes Status: Acute (6) Pulmonary hypertension Current Visit: Yes Status: Acute - Time Spent With Patient Total time spent is greater than 50% in coordination of care (as documented) at patient's floor/unit and/or counseling patient: - Constitutional Vitals: Temp Pulse Resp BP Pulse Ox 97.3 F L 61 16 118/94 95 02/25/18 06:57 02/25/18 06:57 02/25/18 06:57 02/25/18 06:57 02/25/18 06:57 Internal Medicine: Result - Labs CBC & Chem 7: 02/25/18 00:24 02/25/18 00:24 Labs: Short CBC 02/25/18 Range/Units 00:24 WBC 6.7 (4.3-11.1) K/mcL Hgb 14.5 (12.9-16.9) g/dL Hct 40.9 (37.5-50.1) % Plt Count 109 L (140-400) K/mcL Neutrophils # 3.5 (1.6-8.9) K/mcL BMP 02/25/18 00:24 Sodium 138 Potassium 4.1 Chloride 112 H Carbon Dioxide 19 L BUN 12 Creatinine 0.79 Glucose 73 Calcium 9.0 - ABG Interpretation ABG results: PT/INR, D-dimer PT 14.6 Seconds (9.4-12.1) H 02/21/18 16:58 D-Dimer 261 ng/mLFEU (0-500) 02/21/18 16:58 Consult Discharge Plan - Plan Referrals: NONE,PCP [Primary Care Provider] -
[2018-02-25 11:16] VITALS: BP 113/82
[2018-02-25] MEDS: Heparin 25,000 UNIT/500 ML D5W 25,000 UNIT/500 ML BAG IVC SCH (13:33)
--- NOTE | 2018-02-25 14:43 | Discharge Summary ---
<Abdon Palmer - Last Filed: 02/25/18 14:35> - NOTES TO OUTPATIENT PROVIDER Notes to Outpatient Provider: New onset shortness of Breath with exertion, found to have severe pulmonary htn. Initially concerned for NSTEMI, however LHC was normal. RHC shows capillary wedge of 60. 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 HIV and connective tissue labs pending. Orders not resulted at time of discharge: Pending orders 02/23/18 13:02 CL Cardiac Catheterization [CL] Routine CL Cardiac Catheterization [CL] Routine 02/23/18 17:02 Cytology Other [PTH] Routine 02/24/18 04:00 LDH,Pleural Fluid [BF] AM 0400 02/25/18 13:29 ELLEN IgG DEMI rflx IFA Routine CCP IgG Routine HIV-1&2 Antibody & p24 Ag Routine Date of Encounter: 02/25/18 Time of Encounter: 09:45 - Discharge Diagnosis (1) NSTEMI (non-ST elevated myocardial infarction) Priority: Primary Status: Ruled-out Assessment and Plan: Ruled out on LHC (2) Pulmonary hypertension Priority: Primary Status: Acute Assessment and Plan: Severe pulmonary htn, RVSP 80 on TTE, wedge pressure 60 on RHC Pulmonology on board, 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 Suspected to be due to previous alcohol abuse. Cirrhosis has led to portal hypertension which has caused most of his pulmonary issues Requires further workup at [facility] (5) Thrombocytopenia Priority: Secondary Status: Acute Assessment and Plan: 111, 79, 80, 95; is chronically low per history alcohol abuse stable, improving (6) Liver cirrhosis Priority: Secondary Status: Chronic Assessment and Plan: Chronic alcoholic liver cirrhosis Requires workup at [facility] for treatment of portal hypertension that is affecting the pulmonary system Qualifiers: Hepatic cirrhosis type: alcoholic cirrhosis Qualified Code(s): K70.30 - Alcoholic cirrhosis of liver without ascites Hospital course: Mr. Varela is a 52 year old male with history of known alcohol-induced cirrhosis , hypertension who presented to the ED with 1 week history of shortness of breath. Apparently the shortness of breath that happened acutely, and he has never had this issue before. He noted at that time they became lightheaded and diaphoretic, and he presented to the ED for workup. At that time there was consideration for an STEMI due to mildly elevated troponins and mild diastolic dysfunction seen on echo, however it was found that he had severe pulmonary hypertension with an estimated RVSP of 80. He then underwent left heart catheter and right heart catheter and found no significant coronary artery disease and found a pulmonary capillary wedge pressure of 60. A V/Q scan demonstrated no chronic or acute pulmonary embolism. Pulmonology was consulted and recommended further testing including HIV and connective tissue screening, however they further recommended outpatient workup at [facility] for potential liver transplant. Significantly the patient has been on a liver transplant list previously, however because he was stable he was taken off the list. He will be referred for urgent outpatient follow-up with both pulmonology and [facility] hepatology. For further information regarding specific plan at time of discharge , please see the patient's individual assesstment and plan section. Discharge discussed with: patient, family, nurse, case management, customer care consultant - Time Spent with Patient Total time spent providing and/or coordinating discharge services: Greater than 30 minutes - Discharge Medications Home Medications: Metoprolol [Lopressor] 25 mg PO QPM 02/21/18 [History] Allergies/Adverse Reactions: 3 Allergy/AdvReac Type Severity Reaction Status Date / Time No Known Allergies Allergy Verified 02/21/18 16:37 Date of admission: 02/21/18 18:55 Primary care physician: PCP NONE Consults: 02/24/18 16:02 Consult to Pulmonology [CONS] Routine Consulting Provider: [facility] Reason for Consult: Pulm wedge pressure 60, recommendations for treatment Call Completed: Yes 02/25/18 07:34 Consult to Cardiac Rehabilitation-Phase1 [CONS] Routine Comment: Reason for Consult: NSTEMI, PAH Call Completed: No Discharging clinician: Abdon Palmer Anticipated date of discharge: 02/25/18 - Constitutional Vitals: Temp Pulse Resp BP Pulse Ox 97.7 F 67 16 113/82 94 02/25/18 11:13 02/25/18 11:13 02/25/18 11:13 02/25/18 11:13 02/25/18 14:13 Exam: Gen: Vitals noted. Mildly disressed HEENT: Normocephalic, atraumatic Neck: Supple. No adenopathy. Cardiac: RRR, no murmur, +S1/S2 Pulmonary: CTA bilaterally, no wheezes, rales or rhonchi, equal chest expansion Abdomen: soft, nontender, no guarding Extremities: no BLE edema, nontender calf, no cyanosis or clubbing Neuro: moves all extremities, no focal deficits. A&Ox3 Psych: Appropriate mood and behavior - Patient Status Disposition: Home, Self-Care Condition: Serious Functional capacity at discharge: independent ambulation Overall status at discharge: patient is not back to baseline - Discharge Instructions Instructions: Cirrhosis (DC), Abuse of Alcohol (DC), Pulmonary Arterial Hypertension (DC), Chronic Hypertension (DC), Thrombocytopenia (DC) Follow Up With: Joaquin Ospina MD [Partnered Physician] - 02/28/18 11:45 am NONE,PCP [Primary Care Provider] - Additional Instructions: Follow-up with primary care and treated 5 days. Follow-up with pulmonology urgently as directed by pulmonology Continue home medications. There are no new medication orders at this time Will require follow-up and treatment at [facility] For recurrent symptoms, severe shortness of breath, chest pain, changes in level of consciousness please return to the ED at once. - Diet and Activity Activity: increase activity as tolerated Diet: low salt diet <Júnior Elizabeth - Last Filed: 02/25/18 18:02> Orders not resulted at time of discharge: Pending orders 02/23/18 13:02 CL Cardiac Catheterization [CL] Routine CL Cardiac Catheterization [CL] Routine 02/24/18 04:00 LDH,Pleural Fluid [BF] AM 0400 02/25/18 13:29 ELLEN IgG DEMI rflx IFA Routine CCP IgG Routine Date of Encounter: 02/25/18 - Discharge Diagnosis (1) PAH (pulmonary arterial hypertension) with portal hypertension Priority: Primary Status: Acute (2) Liver cirrhosis Status: Chronic Qualifiers: Hepatic cirrhosis type: alcoholic cirrhosis Qualified Code(s): K70.30 - Alcoholic cirrhosis of liver without ascites (3) Thrombocytopenia due to hypersplenism Priority: Secondary Status: Chronic (4) HTN (hypertension) Status: Chronic Qualifiers: Hypertension type: essential hypertension Qualified Code(s): I10 - Essential (primary) hypertension (5) Elevated liver enzymes Status: Acute (6) Thrombocytopenia Status: Acute (7) Pulmonary hypertension Status: Acute (8) NSTEMI (non-ST elevated myocardial infarction) Priority: Secondary Status: Ruled-out Hospital course: Mr. Varela is a 52 year old male - Time Spent with Patient Total time spent providing and/or coordinating discharge services: 36min Date of admission: 02/21/18 18:55 Primary care physician: PCP NONE Consults: 02/24/18 16:02 Consult to Pulmonology [CONS] Routine Consulting Provider: [facility] Reason for Consult: Pulm wedge pressure 60, recommendations for treatment Call Completed: Yes 02/25/18 07:34 Consult to Cardiac Rehabilitation-Phase1 [CONS] Routine Comment: Reason for Consult: NSTEMI, PAH Call Completed: No - Constitutional Vitals: Temp Pulse Resp BP Pulse Ox 97.7 F 67 16 113/82 94 02/25/18 11:13 02/25/18 11:13 02/25/18 11:13 02/25/18 11:13 02/25/18 14:13 - Attending Attestation I examined this patient and my medical decision-making was reviewed with the Resident Physician on 02/25/18. I agree with the documented findings, disposition and treatment plan as described except to the extent set forth below. Mr Varela has been admitted for dyspnea and found have portal pulmonary HTN. He does not qualify for oxygen. He had negative V/Q scan. He follows at [facility] with sales exec. He was seen by pulmonary and will be seen quickly and referred for tertiary care. Exam Alert Comfortable at rest Mucus membranes dry No wheeze No tachycardia Abd soft Plan D/C home today Follow up with pulm as arranged. Labs pending to be followed at visit.
[2018-02-27 08:41] LABS: ANA IgG by ELISA NONE DETECTED (None Detected)
== END 2018-02-25 16:41 | disposition home or self-care (01) | DRG 192 ==
LOC: 2NENU 16:34 → EMEROO 16:34 → SUATTDRO 18:55 → 2NENU 19:52
PROVIDERS: ADMIT Internal Medicine Nephrology; ATTEND Internal Medicine